=== PATIENT | female | born 1980 | race Caucasian/White ===

== ENCOUNTER → 2017-09-22 16:10 | Outpatient (CLI) | payer BC ==
[2015-01-23 19:46] VITALS: BMI 29.0
[~2017-09-22 16:10] MED LIST: CALCI-CHEW1 TAB.CHEW PO; COLACE100 MG PO; DERMOPLAST TOPICAL; EPIFOAM10 GM TOPICAL; FERRETTS324 MG PO; IBUPROFEN600 MG PO; PERCOCET 5-3251 TAB PO; PRENATAL COMPLE1 TAB PO
[2017-09-22 18:24] LABS: BASOPHILS 0.1 % (0-2); EOSINOPHILS 0.5 % (0-7); HEMATOCRIT 27.7 % (36.0-48.0); HEMOGLOBIN 9.3 g/dL (12-16); IMMATURE GRANULOCYTES 1.8 % (0-5); LYMPHOCYTES 21.2 % (15-50); MCH 28.7 pg (26.0-34.0); MCHC 33.6 g/dL (31.0-37.0); MCV 85.5 fL (80.0-100.0); MEAN PLATELET VOLUME 9.8 fL (7.4-10.4); MONOCYTES 11.6 % (2-11); NEUTROPHILS 64.8 % (40-80); PLATELET COUNT 210 10x3/uL (130-400); RBC 3.24 10x6/uL (4.00-5.40); RDW 12.9 % (11.5-14.5); WBC 7.6 10x3/uL (4.8-10.8)
[2017-09-22 18:57] LABS: APPEARANCE CLEAR (CLEAR); BILIRUBIN NEGATIVE (NEGATIVE); COLOR YELLOW (YELLOW); GLUCOSE NEGATIVE (NEGATIVE); KETONE NEGATIVE (NEGATIVE); NITRITE NEGATIVE (NEGATIVE); PROTEIN NEGATIVE (NEGATIVE); UROBILINOGEN NORMAL (NORMAL)
[2017-09-22 18:58] LABS: BACTERIA MODERATE /hpf (NONE SEEN); RED CELLS - URINE OCC /hpf (0-5); WHITE CELLS - URINE 0-5 /hpf (0-5)
[2017-09-22 19:01] LABS: ALBUMIN 2.7 g/dL (3.4-5.0); ALKALINE PHOSPHATASE 85 U/L (46-116); ALT (SGPT) 11 U/L (10-68); BILIRUBIN - TOTAL 0.09 mg/dL (0.2-1.3); CALC OSMOLALITY 274 mosm/kg (275-300); CALCIUM 8.4 mg/dL (8.5-10.1); CARBON DIOXIDE 24.5 mmol/L (21.0-32.0); CHLORIDE - SERUM 104 mmol/L (98-107); CREATININE - SERUM 0.5 mg/dL (0.6-1.3); GLUCOSE 95 mg/dL (74-106); POTASSIUM - SERUM 3.9 mmol/L (3.5-5.1); SODIUM 137 mmol/L (136-145); UREA NITROGEN 16 mg/dL (7-18); eGFR NON AFRICAN AMERICAN > 90 mL/min (90-120)
== END | disposition home or self-care (01) ==
LOC: D.LDO 16:10
PROVIDERS: Obstetrics & Gynecology
DX: O26.899 Other specified pregnancy related conditions, unspecified trimester (principal); Z3A.00 Weeks of gestation of pregnancy not specified

== ENCOUNTER 2017-11-04 10:38 | Inpatient (IN) | payer BC ==
[~2017-11-04] VITALS: Ht 170.2 cm; Wt 83.0 kg
--- NOTE | ~2017-11-04 | DS ---
PATIENT:FRANCIA SANCHEZ :80 MEDICAL RECORD: [id number] DISCHARGE SUMMARY ADMISSION DATE: 11/04/17 DISCHARGE DATE: 11/05/17 DATE OF ADMISSION: 11/04/2017 DATE OF DISCHARGE: 11/05/2017 ADMISSION DIAGNOSIS: Active labor. DISCHARGE DIAGNOSIS: Mother delivered at term. PROCEDURE: Vaginal delivery ATTENDING PHYSICIAN: Elmer Lamas MD HISTORY OF PRESENT ILLNESS: See the H&P in the chart. SUMMARY OF HOSPITALIZATION: The patient was admitted to the hospital and labored and delivered without difficulty. At the time of discharge, she reports minimal lochia and no complaints of pain. The fundus is firm and below the umbilicus. The patient is discharged home with standard precautions. The patient will be given ibuprofen for her pain management. Follow up in 6 weeks with standard precautions. TRANSINT:[id number] Voice Confirmation ID: [id number] DOCUMENT ID: [id number] ELMER LAMAS MD at 1308 CC: [id number] DICTATION DATE: 11/05/17 1054 STORE TEAM LEADER: 11/05/17 1443 DIS IN 11/05/17 [id number] [place] [address]
--- NOTE | ~2017-11-04 | OP ---
PATIENT NAME: FRANCIA SANCHEZ MEDICAL RECORD: [id number] :80 LOCATION:[id number] ADMISSION DATE:11/04/17 SURGEON: TRISTIAN JOHNS MD DATE OF OPERATION: 11/04/2017 DELIVERY NOTE PREDELIVERY DIAGNOSIS: Active labor at 39 weeks. POSTDELIVERY DIAGNOSIS: Mother delivered at 39 weeks. PROCEDURE: Vaginal delivery. ATTENDING: Tristian Johns MD ANESTHESIA: Continuous lumbar epidural. FINDINGS: Viable male infant ZACH presentation with a nuchal cord. The patient's cord cut on the perineum. Weight of , 7 pounds 5 ounces with Apgars of 8 and 9. Placenta was delivered spontaneous and intact with the second degree laceration repaired with chromic stitch. ESTIMATED BLOOD LOSS: 300 cc. DISPOSITION: Mother and infant recovered in the room. TRANSINT:[id number] Voice Confirmation ID: [id number] DOCUMENT ID: [id number] TRISTIAN JOHNS MD at 1308 CC: [id number] DICTATION DATE: 11/04/17 1528 CARPET BINDER: 11/04/17 1608 DIS IN 11/05/17 [facility] [address] [id number]
[2017-11-04 11:37] VITALS: BP 112/62; Ht 170.2 cm; Wt 83.0 kg
[2017-11-04 12:49] LABS: HEMOGLOBIN 10.8 g/dL (12-16); MCH 28.3 pg (26.0-34.0); MCHC 33.8 g/dL (31.0-37.0); MCV 83.8 fL (80.0-100.0); MEAN PLATELET VOLUME 10.6 fL (7.4-10.4); RBC 3.82 10x6/uL (4.00-5.40); WBC 10.9 10x3/uL (4.8-10.8)
[2017-11-04 19:12] VITALS: BP 115/56
[2017-11-05 04:35] VITALS: BP 103/32
[2017-11-05 06:15] LABS: RAPID PLASMA REAGIN Non Reactive (Non Reactive)
[2017-11-05 08:35] VITALS: BP 111/64
[2017-11-05] MEDS ORDERED: IBUPROFEN800 MG PO (15:15)
== END 2017-11-05 16:50 | disposition home or self-care (01) | DRG 775 ==
LOC: D.LDO 10:38 → D.LD 12:06 → D.SDCHOLD 12:23 → D.LD 12:26
PROVIDERS: Obstetrics & Gynecology
PROC: 10E0XZZ Delivery of Products of Conception, External Approach (ICD-10-PCS; principal; 2017-11-04)
PROC: 0KQM0ZZ Repair Perineum Muscle, Open Approach (ICD-10-PCS; 2017-11-04)
DX: O69.81X0 Labor and delivery complicated by cord around neck, without compression, not applicable or unspecified (principal); O70.1 Second degree perineal laceration during delivery; Z37.0 Single live birth; Z3A.39 39 weeks gestation of pregnancy

== ENCOUNTER 2018-03-05 19:50 | Inpatient (IN) | payer BC ==
[~2018-03-05] VITALS: Ht 170.2 cm; Wt 75.0 kg
--- NOTE | ~2018-03-05 | OP ---
PATIENT NAME: FRANCIA SANCHEZ MEDICAL RECORD: [id number] :80 LOCATION:D[facility] [id number] ADMISSION DATE:03/05/18 SURGEON: MADHU MCCLOUD MD DATE OF OPERATION: 03/06/2018 PREOPERATIVE DIAGNOSIS: Acute appendicitis with localized peritonitis. POSTOPERATIVE DIAGNOSIS: Acute appendicitis with localized peritonitis. PROCEDURE: Laparoscopic appendectomy. SURGEON: Madhu Mccloud MD NAILHEAD SETTER: None. BLOOD LOSS: Minimal. ANESTHESIA: General. COMPLICATIONS: None. The risks, possible complications, and alternatives to the procedure were explained to the patient. She elects to proceed. OPERATIVE COURSE: The patient was conveyed to the operating room electively on 03/06/2018. General anesthesia was induced by the anesthesia staff. A small skin shoaib was accomplished in the left upper quadrant. A Veress needle was inserted through the skin shoaib into the peritoneal cavity. CO2 insufflation was begun. Once a sufficient pneumoperitoneum had been achieved, a 5-mm trocar was inserted through an incision in the left lower quadrant. A 12-mm trocar was inserted through an incision at the umbilicus. I noted a nonincarcerated umbilical hernia. Under direct internal vision utilizing television camera, another 5-mm trocar was inserted in the left lower quadrant. During insertion of the Veress needle and all trocars, there appeared to have been no injury to the bowels, any intraperitoneal or retroperitoneal structures. Abdominal survey was undertaken. There was no abscess. No perforation. There was localized peritonitis present. The appendix was grasped. A window was created in the mesoappendix. I stapled across tip of the cecum with an Endo-ANN MARIE type stapler utilizing a blue load. I then took down the mesoappendix utilizing the Harmonic scalpel. There was no bleeding. The appendix was placed within a bag retrieval device and was withdrawn through the umbilical fascia defect. The 12-mm trocar was replaced and the abdomen reinsufflated. I irrigated and aspirated the right lower quadrant. There was no bleeding even at low pressure of 8. All the trocars were removed and the abdomen was desufflated. The umbilical hernia defect was closed with #0 Vicryl suture in a horizontal mattress fashion. Skin at the umbilicus was closed with interrupted 4-0 Vicryl Rapide sutures. The other skin incisions were closed with interrupted intracuticular 3-0 Vicryls. Benzoin and Steri-Strips were applied. The patient was then extubated and conveyed to the postanesthesia care unit, where she was in stable condition. Our plan is she will be dismissed home later today or perhaps in the morning. I will see her in the office in 2-3 weeks. OPERATIVE REPORT [id number] FRANCIA SANCHEZ TRANSINT:[id number] Voice Confirmation ID: [id number] DOCUMENT ID: [id number] MADHU MCCLOUD MD at 1024 CC: MADHU GIBSON MD [id number] DICTATION DATE: 03/06/181929 IT HELP DESK MANAGER: 03/06/182001 DIS IN 03/06/18 [facility] [address] [place] [address]
[~2018-03-05 19:50] MED LIST changes: +IBUPROFEN800 MG PO
[2018-03-05 20:33] LABS: APPEARANCE HAZY (CLEAR); COLOR YELLOW (YELLOW); PH 5.5 (5.0-6.0)
[2018-03-05 20:35] LABS: BILIRUBIN NEGATIVE (NEGATIVE); GLUCOSE NEGATIVE (NEGATIVE); KETONE NEGATIVE (NEGATIVE); NITRITE NEGATIVE (NEGATIVE); PROTEIN NEGATIVE (NEGATIVE); UROBILINOGEN NORMAL (NORMAL); WHITE CELLS - URINE 0-5 /hpf (0-5)
[2018-03-05 20:36] LABS: BACTERIA FEW /hpf (NONE SEEN)
[2018-03-05 20:38] LABS: BASOPHILS 0.1 % (0-2); EOSINOPHILS 0.2 % (0-7); HEMOGLOBIN 13.5 g/dL (12-16); IMMATURE GRANULOCYTES 0.2 % (0-5); LYMPHOCYTES 10.5 % (15-50); MCH 28.2 pg (26.0-34.0); MCHC 33.8 g/dL (31.0-37.0); MCV 83.7 fL (80.0-100.0); MEAN PLATELET VOLUME 9.8 fL (7.4-10.4); MONOCYTES 9.3 % (2-11); NEUTROPHILS 79.7 % (40-80); PLATELET COUNT 266 10x3/uL (130-400); RBC 4.78 10x6/uL (4.00-5.40); RDW 14.3 % (11.5-14.5); WBC 12.7 10x3/uL (4.8-10.8)
[2018-03-05 20:53] LABS: ALBUMIN 4.2 g/dL (3.4-5.0); ANION GAP 9.1 mmol/L (8-16); BILIRUBIN - TOTAL 0.29 mg/dL (0.2-1.3); CALCIUM 9.1 mg/dL (8.5-10.1); CARBON DIOXIDE 28.6 mmol/L (21.0-32.0); POTASSIUM - SERUM 3.7 mmol/L (3.5-5.1); PROTEIN - SERUM 8.2 g/dL (6.4-8.2)
[2018-03-05 20:57] VITALS: BP 130/78
[2018-03-05 21:57] VITALS: BP 123/66
[2018-03-05 22:45] VITALS: BP 123/75
[2018-03-06 01:24] VITALS: BP 115/71; BMI 25.9
[2018-03-06 04:30] VITALS: BP 107/71; BP 108/56
[2018-03-06 05:33] LABS: BASOPHILS 0 % (0-2); EOSINOPHILS 0 % (0-7); HEMATOCRIT 35.8 % (36.0-48.0); HEMOGLOBIN 12.1 g/dL (12-16); IMMATURE GRANULOCYTES 0.2 % (0-5); LYMPHOCYTES 8.8 % (15-50); MCH 28.2 pg (26.0-34.0); MCHC 33.8 g/dL (31.0-37.0); MCV 83.4 fL (80.0-100.0); MEAN PLATELET VOLUME 9.8 fL (7.4-10.4); MONOCYTES 9.4 % (2-11); NEUTROPHILS 81.6 % (40-80); PLATELET COUNT 235 10x3/uL (130-400); RBC 4.29 10x6/uL (4.00-5.40); RDW 14.5 % (11.5-14.5); WBC 12.1 10x3/uL (4.8-10.8)
[2018-03-06 05:53] LABS: INR 1.12 (0.85-1.17)
[2018-03-06 06:10] LABS: ALBUMIN 3.4 g/dL (3.4-5.0); ALKALINE PHOSPHATASE 96 U/L (46-116); ALT (SGPT) 17 U/L (10-68); BILIRUBIN - TOTAL 0.59 mg/dL (0.2-1.3); CALC OSMOLALITY 284 mosm/kg (275-300); CALCIUM 8.1 mg/dL (8.5-10.1); CARBON DIOXIDE 25.1 mmol/L (21.0-32.0); CHLORIDE - SERUM 107 mmol/L (98-107); CREATININE - SERUM 0.7 mg/dL (0.6-1.3); GLUCOSE 112 mg/dL (74-106); PROTEIN - SERUM 6.5 g/dL (6.4-8.2); SODIUM 142 mmol/L (136-145); UREA NITROGEN 15 mg/dL (7-18); eGFR NON AFRICAN AMERICAN > 90 mL/min (90-120)
[2018-03-06 09:10] VITALS: BP 106/56
[2018-03-06 13:46] LABS: HCG SERUM NEGATIVE (NEGATIVE)
[2018-03-06 16:03] VITALS: BP 125/69
[2018-03-06 18:19] VITALS: Ht 170.2 cm; Wt 75.0 kg
[2018-03-06] MEDS ORDERED: HYDROCODON-ACE1 EAC7 PO (18:55)
[2018-03-06 21:58] VITALS: BP 123/65
== END 2018-03-06 23:02 | disposition home or self-care (01) | DRG 340 ==
LOC: D.ER 19:50 → D.EDHOLD 23:35 → D.MS 23:35
PROVIDERS: Family Medicine; Surgery
PROC: 0DTJ4ZZ Resection of Appendix, Percutaneous Endoscopic Approach (ICD-10-PCS; principal; 2018-03-06 13:00)
DX: K35.3 Acute appendicitis with localized peritonitis (principal)